=== PATIENT | male | born 1945 | race Caucasian/White ===

== ENCOUNTER 2020-05-24 11:38 | Outpatient (CLI) | payer MEDICARE ==
--- NOTE | 2020-05-24 12:14 | RAD ---
TWO VIEWS RIGHT HIP: DATE: 05/24/2020. PROVIDED CLINICAL HISTORY: Pain status post injury. FINDINGS: There is a displaced fracture of the right femoral neck. The femoral acetabular relationship appears maintained. No additional fracture is evident. Coxa vera is demonstrated. IMPRESSION: Displaced right femoral neck fracture. The patient was instructed to present to the nearest emergenc y department by the radiology technique and the referring clinician was to be notified by the radiolo gy network support technician. POS: JAMEE
== END 2020-05-24 11:39 | disposition home or self-care (01) ==
LOC: SCSRAD 11:38
PROVIDERS: ATTEND Family Medicine
DX: M25.551 Pain in right hip (principal); S72.001A Fracture of unspecified part of neck of right femur, initial encounter for closed fracture

== ENCOUNTER 2021-10-08 13:17 | Outpatient (CLI) | payer MEDICARE | END 2021-10-08 13:18 | disposition home or self-care (01) | LOC: ULT 13:17 | PROVIDERS: ATTEND Internal Medicine Nephrology | DX: N18.30 Chronic kidney disease, stage 3 unspecified (principal); N27.0 Small kidney, unilateral | CPT/HCPCS: 76770 ==

== ENCOUNTER 2023-07-17 10:08 | Outpatient (CLI) | payer MEDICARE | END 2023-07-17 10:09 | disposition home or self-care (01) | LOC: RAD 10:08 | PROVIDERS: ATTEND Family Medicine | DX: R13.10 Dysphagia, unspecified (principal) | CPT/HCPCS: 71045 ==

== ENCOUNTER 2024-06-13 09:36 | Inpatient (IN) | payer MEDICARE ==
[2024-06-13 10:36] LABS: Bacteria/HPF 4+ HPF (None Seen); Bilirubin Negative (Negative); Blood, Urine 2+ (Negative); CAUTI Indications for Culture Fever or rigors; Clarity Turbid (Clear); Glucose, Urine (Dipstick) 150 mg/dL (Negative); Ketone, Urine Negative (Negative); Leukocyte 500 Leu/uL (Negative); Nitrite 1+ (Negative); Protein, Urine (Dipstick) 70 mg/dL (Neg-Trace); Specific Gravity, Urine 1.016 (1.002-1.036); Squamous Epithelial None Seen HPF (0-3); Urobilinogen Normal mg/dL (Less than 2); WBC/HPF Greater than 50 HPF (0-3); pH, Urine 5.5 (5.0-9.0)
[2024-06-13] MEDS ORDERED: Sodium Chloride 0.9% 100 ML ONE (10:39)
[2024-06-13] MEDS ORDERED: Cefepime 2 GM VIAL ONE (10:39)
[2024-06-13 10:45] LABS: #Basophils Less than 0.03 10x3/uL (0.0-0.2); #Eosinophils Less than 0.03 10x3/uL (0.0-0.7); %Basophils 0.2 % (0.0-1.0); %Lymphocytes 8.4 % (21.0-51.0); %Monocytes 7.4 % (0.0-10.0); %Neutrophils 81.6 % (42.0-75.0); Hematocrit 26.3 % (42.0-52.0); Hemoglobin 8.5 g/dL (14.0-18.0); Mean Corpuscular HGB CONC 32.3 g/dL (32.0-36.0); Mean Corpuscular Hemoglobin 30.7 pg (27.0-31.0); Mean Corpuscular Volume 94.9 fL (78.0-98.0); Mean Platelet Volume 10.7 fL (7.4-10.4); Platelet Count 240 10x3/uL (130-400); RBC Distribution Width 16.5 % (11.5-14.5); Red Blood Cell (RBC) Count 2.77 mill/uL (4.70-6.10)
[2024-06-13 11:10] LABS: Urine Culture Reflex Yes Yes
[2024-06-13 11:13] LABS: ALT (SGPT) Less than 5 U/L (8-55); AST (SGOT) 6 U/L (5-34); Albumin 3.2 g/dL (3.4-4.8); Alkaline Phosphatase 63 U/L (40-110); Anion Gap 18 mmol/L (10-20); BUN (Urea Nitrogen) 81 mg/dL (8.4-25.7); Bilirubin, Total 0.5 mg/dL (0.2-1.2); Calc. Creatinine Clearance 0 mL/min (70-130); Calcium 8.7 mg/dL (7.8-10.44); Carbon Dioxide 21 mmol/L (23-31); Chloride 117 mmol/L (98-107); Estimated GFR 18; Globulin 5.3 g/dL (2.4-3.5); Glucose 217 mg/dL (83-110); Potassium 4.4 mmol/L (3.5-5.1); Protein, Total 8.5 g/dL (5.8-8.1); Sodium 152 mmol/L (136-145)
[2024-06-13] MEDS ORDERED: Insulin Regular, Human 100 UNIT/ML 10 ML VIAL SC PRN (13:58)
[2024-06-13] MEDS ORDERED: Dextrose 50% Abboject 50 ML SYRINGE SLOW IVP PRN (13:58)
[2024-06-13] MEDS ORDERED: Glucagon 1 MG/ML KIT IM PRN (13:58)
[2024-06-13] MEDS ORDERED: Ondansetron PF 4 MG/2 ML Vial IVP PRN (13:58)
[2024-06-13] MEDS ORDERED: Dextrose 5% in Water 1,000 ML IV PRN (13:58)
[2024-06-13] MEDS ORDERED: Sodium Chloride 0.9% 1,000 ML IV SCH (14:00)
[2024-06-13] MEDS: Acetaminophen 650 MG Suppository PR PRN (16:43)
[2024-06-13 16:52] LABS: Lactic Acid 0.76 mmol/L (0.5-2.2)
[2024-06-13 17:01] LABS: Anion Gap 17 mmol/L (10-20); BUN (Urea Nitrogen) 71 mg/dL (8.4-25.7); Calc. Creatinine Clearance 0 mL/min (70-130); Calcium 8.3 mg/dL (7.8-10.44); Carbon Dioxide 17 mmol/L (23-31); Chloride 122 mmol/L (98-107); Estimated GFR 21; Glucose 247 mg/dL (83-110); Potassium 4.5 mmol/L (3.5-5.1); Sodium 151 mmol/L (136-145)
[2024-06-13 17:51] VITALS: BMI 20.2
[2024-06-13] MEDS: Vancomycin (BATCH) 1.25 GM in Premix 1 BAG IVPB SCH (18:01)
[2024-06-13] MEDS: Meropenem 1 GM in Sodium Chloride 0.9% 100 ML IVPB SCH (19:09)
[2024-06-13] MEDS: Dextrose 5 %-0.45 % NaCl 1,000 ML IV SCH (19:09)
[2024-06-13 20:37] LABS: Anion Gap 16 mmol/L (10-20); BUN (Urea Nitrogen) 68 mg/dL (8.4-25.7); Calc. Creatinine Clearance 19 mL/min (70-130); Calcium 8.5 mg/dL (7.8-10.44); Carbon Dioxide 18 mmol/L (23-31); Chloride 122 mmol/L (98-107); Estimated GFR 21; Glucose 254 mg/dL (83-110); Potassium 4.4 mmol/L (3.5-5.1); Sodium 152 mmol/L (136-145)
[2024-06-13] MEDS ORDERED: Cefepime 2 GM in Sodium Chloride 0.9% 100 ML IVPB SCH (21:00)
[2024-06-13] MEDS ORDERED: Vancomycin 1 GM in Sodium Chloride 0.9% 250 ML 250 ML IVPB SCH (21:00)
[2024-06-13] MEDS ORDERED: Meropenem 1 GM in Sodium Chloride 0.9% 100 ML IVPB SCH (22:00)
[2024-06-14 04:20] LABS: #Basophils 0.04 10x3/uL (0.0-0.2); #Eosinophils Less than 0.03 10x3/uL (0.0-0.7); %Basophils 0.5 % (0.0-1.0); %Eosinophils 0.2 % (0.0-10.0); %Lymphocytes 11.3 % (21.0-51.0); %Monocytes 7.6 % (0.0-10.0); %Neutrophils 76.3 % (42.0-75.0); Hemoglobin 8.4 g/dL (14.0-18.0); Mean Corpuscular Hemoglobin 29.5 pg (27.0-31.0); Mean Corpuscular Volume 98.2 fL (78.0-98.0); Mean Platelet Volume 10.1 fL (7.4-10.4); Platelet Count 223 10x3/uL (130-400); RBC Distribution Width 16.6 % (11.5-14.5); Red Blood Cell (RBC) Count 2.85 mill/uL (4.70-6.10)
[2024-06-14 04:40] LABS: Anion Gap 17 mmol/L (10-20); BUN (Urea Nitrogen) 64 mg/dL (8.4-25.7); Calc. Creatinine Clearance 19 mL/min (70-130); Calcium 8.9 mg/dL (7.8-10.44); Carbon Dioxide 19 mmol/L (23-31); Chloride 120 mmol/L (98-107); Estimated GFR 22; Glucose 311 mg/dL (83-110); Potassium 4.4 mmol/L (3.5-5.1); Sodium 152 mmol/L (136-145)
[2024-06-14] MEDS: Dextrose 5% in Water 1,000 ML IV SCH ×2 (05:22→08:08)
[2024-06-14] MEDS: Meropenem 500 MG in Sodium Chloride 0.9% 100 ML IVPB SCH (05:23)
[2024-06-14] MEDS ORDERED: hydrALAZINE 20 MG/ML VIAL SLOW IVP PRN (05:54)
[2024-06-14] MEDS ORDERED: Labetalol HCl 100 MG/20 ML VIAL SLOW IVP PRN (05:54)
[2024-06-14] MEDS: Insulin Lispro 100 UNIT/ML 10 ML VIAL SC PRN (06:03)
[2024-06-14] MEDS ORDERED: Epoetin (ESRD) 20,000 UNITS/ML MDV SC SCH (07:15)
[2024-06-14] MEDS: Enoxaparin 30 MG (0.3 mL) SYRINGE SC SCH (08:07)
[2024-06-14] MEDS: Pantoprazole 40 MG VIAL IVP SCH (08:07)
[2024-06-14] MEDS: methylPREDNISolone Sod Succ 40 MG VIAL IVP SCH ×2 (08:08→09:52)
[2024-06-14] MEDS: EPOETIN ALFA-EPBX (ESRD) 10,000 UNITS/ML VIAL SC SCH (14:57)
[2024-06-14 16:17] LABS: Anion Gap 21 mmol/L (10-20); BUN (Urea Nitrogen) 59 mg/dL (8.4-25.7); Calc. Creatinine Clearance 21 mL/min (70-130); Carbon Dioxide 16 mmol/L (23-31); Chloride 113 mmol/L (98-107); Estimated GFR 24; Glucose 401 mg/dL (83-110); Phosphorus 3.8 mg/dL (2.3-4.7); Potassium 4.4 mmol/L (3.5-5.1); Sodium 146 mmol/L (136-145)
[2024-06-14] MEDS: Insulin Lispro 100 UNIT/ML 10 ML VIAL SC SCH (17:46)
[2024-06-15 07:45] LABS: #Basophils 0.05 10x3/uL (0.0-0.2); #Eosinophils Less than 0.03 10x3/uL (0.0-0.7); %Basophils 0.5 % (0.0-1.0); %Eosinophils 0.2 % (0.0-10.0); %Lymphocytes 8.4 % (21.0-51.0); %Monocytes 7.2 % (0.0-10.0); %Neutrophils 81.4 % (42.0-75.0); Hemoglobin 8.8 g/dL (14.0-18.0); Mean Corpuscular HGB CONC 30.3 g/dL (32.0-36.0); Mean Corpuscular Hemoglobin 29.8 pg (27.0-31.0); Mean Corpuscular Volume 98.3 fL (78.0-98.0); Mean Platelet Volume 10.7 fL (7.4-10.4); Platelet Count 219 10x3/uL (130-400); RBC Distribution Width 16.4 % (11.5-14.5); Red Blood Cell (RBC) Count 2.95 mill/uL (4.70-6.10)
[2024-06-15 08:05] LABS: Anion Gap 16 mmol/L (10-20); BUN (Urea Nitrogen) 56 mg/dL (8.4-25.7); Calc. Creatinine Clearance 22 mL/min (70-130); Calcium 9.1 mg/dL (7.8-10.44); Carbon Dioxide 17 mmol/L (23-31); Chloride 113 mmol/L (98-107); Estimated GFR 27; Glucose 381 mg/dL (83-110); Sodium 142 mmol/L (136-145)
[2024-06-15] MEDS: methylPREDNISolone Sod Succ 40 MG VIAL IVP SCH (08:18)
[2024-06-15 08:20] VITALS: BP 128/84; TEMP 98.1
== END 2024-06-15 10:16 | disposition hospice, home (50) | DRG 698 ==
LOC: ERS 09:36 → 2NO 15:23 → IMCU/EMU 17:05 → T4-B 06-14 17:31
PROVIDERS: ADMIT Internal Medicine; ATTEND Hospitalist
PROC: 0T9B70Z Drainage of Bladder with Drainage Device, Via Natural or Artificial Opening (ICD-10-PCS; principal; 2024-06-13)
DX: T83.511A Infection and inflammatory reaction due to indwelling urethral catheter, initial encounter (principal); A41.51 Sepsis due to Escherichia coli [E. coli]; N30.01 Acute cystitis with hematuria; F02.84 Dementia in other diseases classified elsewhere, unspecified severity, with anxiety; F02.83 Dementia in other diseases classified elsewhere, unspecified severity, with mood disturbance; N17.9 Acute kidney failure, unspecified; E87.0 Hyperosmolality and hypernatremia; Z51.5 Encounter for palliative care; Z66 Do not resuscitate; G20.A1 Parkinson's disease without dyskinesia, without mention of fluctuations; Z79.84 Long term (current) use of oral hypoglycemic drugs; E78.5 Hyperlipidemia, unspecified; D63.8 Anemia in other chronic diseases classified elsewhere; E87.5 Hyperkalemia; E86.0 Dehydration; B96.20 Unspecified Escherichia coli [E. coli] as the cause of diseases classified elsewhere; N18.9 Chronic kidney disease, unspecified; R13.12 Dysphagia, oropharyngeal phase; Y73.2 Prosthetic and other implants, materials and accessory gastroenterology and urology devices associated with adverse incidents; Y84.6 Urinary catheterization as the cause of abnormal reaction of the patient, or of later complication, without mention of misadventure at the time of the procedure; E11.22 Type 2 diabetes mellitus with diabetic chronic kidney disease; I12.9 Hypertensive chronic kidney disease with stage 1 through stage 4 chronic kidney disease, or unspecified chronic kidney disease; N25.89 Other disorders resulting from impaired renal tubular function; Z88.0 Allergy status to penicillin; Z79.899 Other long term (current) drug therapy; Z79.01 Long term (current) use of anticoagulants; Z79.52 Long term (current) use of systemic steroids; Z74.01 Bed confinement status
CPT/HCPCS: 36415; 36416; 71045; 80048; 80053; 81001; 83605; 84100; 85025; 87040; 87077; 87086; 87186; 93005; 96365; 96366; 96367; J0692; J1650; J2185; J2470; J2919; J3370; J7042; J7070; Q5105